=== PATIENT | female | born 1990 | race Caucasian/White ===

== ENCOUNTER 2018-02-07 08:05 | Outpatient (CLI) | payer BC ==
--- NOTE | 2018-02-07 11:05 | ULT ---
OB ULTRASOUND: HISTORY: Followup after 1st trimester. COMPARISON: None. TECHNIQUE: Sagittal and transverse imaging of a gravid uterus is performed. FINDINGS: Single intrauterine gestation with heart tones of 155 b.p.m. Presentation is transverse, mater nal left. Anterior placenta. No evidence of previa. Cervical length is 3.9 cm. Biometry: BPD 4.66 cm, 20 weeks 1 day Head circumference 17.42 cm, 20 weeks 0 days Abdominal circumference 14.72 cm, 20 weeks 0 days Femur length 3.22 cm, 20 weeks 0 days Estimated weight is 327 gm Average age by sonography is 20 weeks 0 days. Estimated delivery date is 06/27/18. Survey: The following structures appear to be normal: cerebellum, lateral ventricle, bladder, 3-vessel cord, stomach, cord insertion. Limited evaluation of the 4-chamber heart, kidneys, spine. IMPRESSION: Single intrauterine gestation as above. Average age by sonography is 20 weeks 0 days. survey as above. Followup imaging to complete survey. POS: MARIANNA
== END 2018-02-07 08:06 | disposition home or self-care (01) ==
LOC: ULT 08:05
PROVIDERS: ATTEND Family Medicine
DX: Z34.92 Encounter for supervision of normal pregnancy, unspecified, second trimester (principal); Z3A.20 20 weeks gestation of pregnancy
CPT/HCPCS: 76805

== ENCOUNTER 2018-06-24 05:42 | Inpatient (IN) | payer BC ==
--- NOTE | 2018-06-23 22:27 | HP ---
HISTORY OF PRESENT ILLNESS: This is a 27-year-old white female G3, P1-0-1-1 at 39 weeks and 2 days w ho is being admitted for elective repeat section. The patient prenatally has had no complic ations. No complaints of any contractions or rupture of membranes. She does have a history of one s pontaneous miscarriage and also a in [place] for failure to progress. She had a 9 po und 8 ounce baby at that time. She is desiring a repeat section. PAST MEDICAL HISTORY: Unremarkable. ALLERGIES: None. PAST SURGICAL HISTORY: in 02/2016 and one D&C in 07/2017. FAMILY HISTORY: Mother with history of skin cancer, sibling with melanoma. SOCIAL HISTORY: She is . She drinks wine rarely. She does have one son. She is [employer]. REVIEW OF SYSTEMS: As above. PHYSICAL EXAMINATION: VITAL SIGNS: Stable, afebrile. HEENT: Clear. HEART: Regular rate and rhythm. LUNGS: Clear. ABDOMEN: Gravid. EXTREMITIES: With no edema. LABORATORY DATA: GBS positive. HIV negative. One hour GCT 125. GC chlamydia negative. TSH normal . HIV negative, hepatitis B negative, RPR nonreactive, and rubella immune. AB positive blood type. ASSESSMENT: 1. Term . 2. Prior section. PLAN: 1. Routine L&D orders. 2. Routine anesthesia consult. 3. The patient scheduled for repeat at 7:30 in the a.m.
[2018-06-24] MEDS ORDERED: Bicitra 30 ML UDCUP PO SCH (05:58)
[2018-06-24] MEDS ORDERED: Promethazine HCl 25 MG/ML VIAL IM PRN (05:58)
[2018-06-24] MEDS ORDERED: Ondansetron HCl/PF 4 MG/2 ML Vial IVP PRN (05:58)
[2018-06-24] MEDS ORDERED: CEFAZOLIN/Water 2 GM/20 ML SYRINGE SLOW IVP SCH (05:58)
[2018-06-24] MEDS ORDERED: Acetaminophen 500 MG TAB PO PRN (05:58)
[2018-06-24] MEDS ORDERED: Butorphanol Tartrate 1 MG/ML VIAL SLOW IVP PRN (05:58)
[2018-06-24] MEDS ORDERED: Bicitra 30 ML UDCUP ONE (07:10)
[2018-06-24] MEDS ORDERED: PHENYLEPHRINE-NS 100 MCG/ML 10 ML SYRINGE ONE (07:12)
[2018-06-24] MEDS ORDERED: Ketorolac Tromethamine 30 MG/ML VIAL ONE (07:12)
[2018-06-24] MEDS ORDERED: Dexamethasone 4 mg/ml Vial ONE (07:12)
[2018-06-24] MEDS ORDERED: Ondansetron HCl/PF 4 MG/2 ML Vial ONE (07:12)
[2018-06-24] MEDS ORDERED: Bupivacaine 0.75% W/DEXTROSE 8.25% 2 ML AMP ONE (07:12)
[2018-06-24] MEDS ORDERED: Oxytocin 10 UNITS/ML VIAL ONE (07:12)
[2018-06-24] MEDS ORDERED: Morphine PF 1 MG/ML SYR ONE (07:16)
[2018-06-24] MEDS ORDERED: Erythromycin Base 0.5% Oint 1 GM TUBE ONE (09:37)
[2018-06-24] MEDS ORDERED: Phytonadione Neonatal 1 MG/0.5 ML AMP ONE (09:37)
[2018-06-24] MEDS ORDERED: Meperidine HCl/PF 25 MG/ML VIAL ONE ×2 (09:48→10:05)
[2018-06-24] MEDS ORDERED: Morphine 4 MG/ML VIAL ONE (10:59)
--- NOTE | 2018-06-24 11:23 | OP ---
PREOPERATIVE DIAGNOSES: 1. Term . 2. Prior section. POSTOPERATIVE DIAGNOSES: 1. Term . 2. Prior section. PROCEDURE: Repeat low-transverse section. SURGEON: Luis Eduardo Pierre M.D. GENERAL FREIGHT AGENT: Marion Hare MD and Mi Pierre M.D. ANESTHESIA: Spinal. ESTIMATED BLOOD LOSS: 800. Final count pending. Delivered a baby girl with Apgars 8 at 1 minute an d 9 and 5 minutes. DESCRIPTION OF PROCEDURE: This 27-year-old white female G2, P1 taken to the operating room. The abd omen was prepped and draped. A Pfannenstiel incision was made over the previous incision. Subcutane ous was dissected and the fascia was opened without incident. Peritoneum was opened by blunt dissect ion. Todd O was placed. Bladder flap was dissected inferiorly. Low-transverse uterine incision w as made. Fluid was noted to be clear. Delivered LGA baby with use of a vacuum. Baby did breathe an d cry vigorously upon delivery. Delivered the placenta manually intact. Dilated the cervix. Closed the uterus in 1 layer of #1 Monocryl. The abdomen was evacuated of all clots. Peritoneum was close d with 2-0 chromic. The fascia was closed with 0 Vicryl and the skin with goldie. Mom and baby did very well. Estimated blood loss was 800 mL.
[2018-06-24 12:21] LABS: Hemoglobin 14.8 g/dL (12.0-16.0); White Blood Cell (WBC) Count 10.5 thou/uL (4.8-10.8)
[2018-06-24 12:22] LABS: Mean Corpuscular HGB CONC 34.5 g/dL (32.0-36.0); Mean Corpuscular Hemoglobin 33.5 pg (27.0-31.0); Mean Corpuscular Volume 97.2 fL (78.0-98.0); Mean Platelet Volume 8.3 fL (7.4-10.4); Platelet Count 241 thou/uL (130-400)
[2018-06-24 12:59] LABS: HBSAg Index 0.17 S/CO (0-0.99); Hep B Surf Ag Non-Reactive S/CO (NonReactive)
[2018-06-24 13:00] LABS: Syphilis Antibody Nonreactive (Nonreactive); Syphilis Antibody Index 0.06 S/CO (<1.00 Non-Reactive)
[2018-06-24 13:34] VITALS: BMI 26.7
[2018-06-24] MEDS ORDERED: HYDROcodone/Acetaminophen 5/325 mg Tablet PO PRN (13:47)
[2018-06-24] MEDS: Lactated Ringer's 1,000 ML IV SCH ×2 (14:32→15:00)
[2018-06-25] MEDS: Lactated Ringer's 1,000 ML IV SCH ×3 (01:44→19:11)
[2018-06-25] MEDS ORDERED: Lanolin Ointment 7 GM TUBE TOP PRN (07:14)
[2018-06-25] MEDS: HYDROcodone/Acetaminophen 5/325 mg Tablet PO PRN ×2 (09:44→17:31)
[2018-06-25 11:22] LABS: Hemoglobin 13.1 g/dL (12.0-16.0); Mean Corpuscular HGB CONC 34.1 g/dL (32.0-36.0); Mean Corpuscular Hemoglobin 33.6 pg (27.0-31.0); Mean Corpuscular Volume 98.5 fL (78.0-98.0); Mean Platelet Volume 7.7 fL (7.4-10.4); Platelet Count 222 thou/uL (130-400); RBC Distribution Width 12.2 % (11.5-14.5); White Blood Cell (WBC) Count 11.7 thou/uL (4.8-10.8)
[2018-06-26] MEDS: HYDROcodone/Acetaminophen 5/325 mg Tablet PO PRN ×2 (01:30→16:44)
[2018-06-26] MEDS: Ibuprofen 800 MG TAB PO PRN ×2 (03:41→18:06)
[2018-06-26] MEDS: Lactated Ringer's 1,000 ML IV SCH ×2 (04:09→07:26)
[2018-06-26 11:57] VITALS: BP 112/70; TEMP 98.8
--- NOTE | 2018-06-27 02:12 | DIS ---
DATE OF ADMISSION: 06/24/2018 DATE OF DISCHARGE: 06/26/2018 DISCHARGE DIAGNOSES: 1. Term . 2. Repeat low transverse section. DISCHARGE MEDICATIONS: Hydrocodone 5/325 #40 and Motrin 800 one p.o. q.8 hours p.r.n. #40. BRIEF HISTORY: This is a 27-year-old white female who was admitted for elective repeat cesarea n section. No complications. HOSPITAL COURSE: The patient underwent a repeat low transverse section without complication . She did very well. She had 9 pound and 10 ounce baby girl without difficulty. Baby is breastfeed ing well. Mom and baby now ready for discharge. We will follow up in 1 day. Discharge H and H is 1 3 and 38.
== END 2018-06-26 19:10 | disposition home or self-care (01) | DRG 766 ==
LOC: L&D 05:42 → 3SE 12:54
PROVIDERS: ADMIT Family Medicine; ATTEND Family Medicine
PROC: 10D00Z1 Extraction of Products of Conception, Low, Open Approach (ICD-10-PCS; principal; 2018-06-24)
DX: O34.211 Maternal care for low transverse scar from previous cesarean delivery (principal); Z3A.39 39 weeks gestation of pregnancy; Z37.0 Single live birth; O36.63X0 Maternal care for excessive fetal growth, third trimester, not applicable or unspecified
CPT/HCPCS: 36415; 51702; 85027; 86780; 86850; 86900; 86901; 87340; A4216; J1100; J1885; J2175; J2270; J2274; J2405; J2590; J3430; J3490

== ENCOUNTER 2020-08-08 11:48 | Inpatient (IN) | payer OTHER, SELFPAY ==
[2020-08-08 12:41] LABS: Amnisure Test RUPTURE DETECTED (No Rupture)
[2020-08-08 12:42] LABS: Amnisure Internal Control QC ACCEPTABLE (ACCEPTABLE)
[2020-08-08 12:49] VITALS: BMI 28.3
[2020-08-08] MEDS ORDERED: hydrALAZINE 20 MG/ML VIAL SLOW IVP PRN ×2 (13:04→17:29)
[2020-08-08] MEDS ORDERED: Ondansetron PF 4 MG/2 ML Vial IVP PRN ×2 (13:04→17:59)
[2020-08-08] MEDS ORDERED: CEFAZOLIN 2 GM in Premix Bag 1 BAG IVPB SCH (13:15)
[2020-08-08] MEDS ORDERED: Bicitra 30 ML UDCUP PO SCH (13:15)
[2020-08-08] MEDS ORDERED: Lactated Ringer's 1,000 ML IV SCH ×2 (13:15)
[2020-08-08 13:43] LABS: Hemoglobin 15.1 g/dL (12.0-16.0); Mean Corpuscular HGB CONC 33.9 g/dL (32.0-36.0); Mean Corpuscular Hemoglobin 33.1 pg (27.0-31.0); Mean Corpuscular Volume 97.7 fL (78.0-98.0); Mean Platelet Volume 8.5 fL (7.4-10.4); Platelet Count 217 thou/uL (130-400); RBC Distribution Width 11.7 % (11.5-14.5); Red Blood Cell (RBC) Count 4.56 mill/uL (4.20-5.40); White Blood Cell (WBC) Count 11.2 thou/uL (4.8-10.8)
[2020-08-08 14:13] LABS: HBSAg Index 0.24 S/CO (0-0.99); Hep B Surf Ag Non-Reactive S/CO (NonReactive); Syphilis Antibody Nonreactive (Nonreactive); Syphilis Antibody Index 0.04 S/CO (<1.00 Non-Reactive)
[2020-08-08] MEDS ORDERED: Dexamethasone 4 mg/ml Vial ONE (16:55)
[2020-08-08] MEDS ORDERED: Ondansetron PF 4 MG/2 ML Vial ONE (16:55)
[2020-08-08] MEDS ORDERED: Metoclopramide HCl 10 MG/2 ML VIAL ONE (16:55)
[2020-08-08] MEDS ORDERED: ePHEDrine 50 MG/ML VIAL ONE (16:55)
[2020-08-08] MEDS ORDERED: Oxytocin 10 UNITS/ML VIAL ONE (16:57)
[2020-08-08] MEDS ORDERED: Adacel (T-DAP) 0.5 ML SYRINGE IM ONE (17:29)
[2020-08-08] MEDS ORDERED: diphenhydrAMINE 25 MG CAP PO PRN (17:29)
[2020-08-08] MEDS ORDERED: HYDROcodone/Acetaminophen 5/325 mg Tablet PO PRN ×3 (17:29→18:21)
[2020-08-08] MEDS ORDERED: Misoprostol 200 MCG TAB PR PRN (17:29)
[2020-08-08] MEDS ORDERED: Simethicone Chewable 80 MG TAB PO PRN (17:29)
[2020-08-08] MEDS ORDERED: Lanolin Ointment 7 GM TUBE TOP PRN (17:29)
[2020-08-08] MEDS ORDERED: Acetaminophen 325 MG TAB PO PRN (17:29)
[2020-08-08] MEDS ORDERED: Bisacodyl 10 MG SUPP PR PRN (17:29)
[2020-08-08] MEDS ORDERED: Promethazine HCl 25 MG/ML VIAL IM PRN ×2 (17:29→17:59)
[2020-08-08] MEDS ORDERED: CEFAZOLIN 1 GM VIAL ONE (17:36)
[2020-08-08] MEDS ORDERED: PHENYLEPHRINE-NS 100 MCG/ML 10 ML SYRINGE ONE (17:36)
[2020-08-08] MEDS ORDERED: diphenhydrAMINE 50 MG/ML VIAL IVP PRN (17:59)
[2020-08-08] MEDS ORDERED: Meperidine HCl/PF 25 MG/ML VIAL SLOW IVP PRN (17:59)
[2020-08-08] MEDS ORDERED: Naloxone HCl 0.4 mg/ml Vial IVP PRN ×2 (17:59)
[2020-08-08] MEDS ORDERED: Promethazine HCl 25 MG SUPP PR PRN (17:59)
[2020-08-08] MEDS ORDERED: Naloxone HCl 0.4 mg/ml Vial IV PRN (17:59)
[2020-08-08] MEDS ORDERED: HYDROmorphone 2 MG/ML VIAL SLOW IVP PRN (17:59)
[2020-08-08] MEDS ORDERED: Ondansetron HCl/PF 4 MG/2 ML Vial IVP PRN (17:59)
[2020-08-08] MEDS ORDERED: L&D-Morphine 4 MG/ML VIAL SLOW IVP PRN (17:59)
[2020-08-08] MEDS ORDERED: Ketorolac Tromethamine 30 MG/ML VIAL IVP SCH (18:00)
[2020-08-08] MEDS ORDERED: Communication Order-Pharmacy FS SCH (18:00)
[2020-08-08] MEDS ORDERED: Ketorolac Tromethamine 30 MG/ML VIAL ONE (19:58)
[2020-08-08] MEDS: Ketorolac Tromethamine 30 MG/ML VIAL IVP PRN (20:04)
[2020-08-08] MEDS ORDERED: Meperidine HCl/PF 25 MG/ML VIAL ONE (20:38)
[2020-08-08] MEDS ORDERED: Ibuprofen 800 MG TAB PO SCH (22:00)
[2020-08-09] MEDS: Docusate Calcium (SURFAK) 240 MG CAP PO SCH ×3 (00:51→21:38)
--- NOTE | 2020-08-09 01:05 | OP ---
DATE OF PROCEDURE: 08/08/2020 PREOPERATIVE DIAGNOSES: 1. 29-year-old white female, G5, P2, A2 at 38 to 39 weeks gestation. 2. Spontaneous rupture of membrane. 3. Prior section x2. POSTOPERATIVE DIAGNOSES: 1. 29-year-old white female, G5, P2, A2 at 38 to 39 weeks gestation. 2. Spontaneous rupture of membrane. 3. Prior section x2. 4. Delivered. PROCEDURE PERFORMED: Repeat low transverse section without extension. BOTTLE SORTER SURGEON: Justino Carson MD of OB Hospitalist Service. ANESTHESIA: Spinal block. ESTIMATED BLOOD LOSS: 250 mL. COMPLICATIONS: None. ANTIBIOTICS: 2 g Ancef. FINDINGS: 1. Vigorous female , weight and Apgars are pending at the time of this dictation. 2. Clear urine noted. 3. Normal uterus, bilateral fallopian tubes and ovaries. DISPOSITION: Recovery room, stable. DESCRIPTION OF PROCEDURE: The patient previously received informed consent in regard to surgery. She had spontaneous rupture of membranes with positive AmniSure noted on arrival. She was taken back to the operative suite, where she was administered a spinal block without complications. We then prepped and draped in usual sterile fashion. Gonzalez catheter and SCDs being placed. A Pfannenstiel incision was made through the previous scar site. This was carried down to the fascia. The fascia was nicked in the midline. Fascial incision was extended bilaterally with the use of curved Giraldo scissors. The rectus fascia was then dissected sharply with Giraldo scissors superiorly and inferiorly. The rectus muscle bellies were somewhat adherent and we found a plane that allowed us to dissect the rectus muscle bellies in the midline and we entered the peritoneal cavity. The peritoneal incision was extended. The patient had veins in the superficial bladder. Serosa noted and therefore, we gently placed a bladder blade instead of the Todd O retractor. A bladder flap was created in usual fashion and then a 2 cm hysterotomy incision was made in the lower uterine segment. This was extended via finger fractionation. The baby was delivered in the vertex presentation. Mouth and nares were bulb suctioned on the abdomen. The cord was doubly clamped and handed to the pediatric staff in attendance. Cord blood was obtained and placenta was manually extracted. The uterus was externalized and curetted of any remaining placental fragments with a dry laparotomy sponge. Hysterotomy incision was then closed in double-layer closure with #1 Monocryl suture. Good hemostasis was confirmed. We then irrigated the pelvis and returned the uterus back into the abdomen. Hemostasis around the hysterotomy site and pelvis was confirmed. Rectus muscle bellies were then inspected and noted to be hemostatic prior to fascial closure. The fascia was closed with 0 PDS suture x2 in a running continuous fashion. Subcutaneous tissue was irrigated and noted to be hemostatic prior to skin approximation with goldie. The surgery was terminated. No anesthesia or surgical complications occurred. Job ID: [id number]
[2020-08-09] MEDS: Ketorolac Tromethamine 30 MG/ML VIAL IVP PRN (03:14)
--- NOTE | 2020-08-09 03:25 | OP ---
DATE OF PROCEDURE: 08/08/2020 PRIMARY OB: Dr. Latesha Biggs. This note functions as a documentation that I was patent legal assistant on a repeat performed by Dr. Latesha Biggs. For complete details, please refer to her operative note. Job ID: [id number]
[2020-08-09] MEDS ORDERED: HYDROcodone/Acetaminophen 5/325 mg Tablet PO PRN ×2 (06:00)
[2020-08-09 06:18] LABS: Mean Corpuscular Hemoglobin 33.5 pg (27.0-31.0); Mean Corpuscular Volume 98.6 fL (78.0-98.0); Mean Platelet Volume 8.2 fL (7.4-10.4); Platelet Count 183 thou/uL (130-400); RBC Distribution Width 11.5 % (11.5-14.5); Red Blood Cell (RBC) Count 3.88 mill/uL (4.20-5.40); White Blood Cell (WBC) Count 18.6 thou/uL (4.8-10.8)
--- NOTE | 2020-08-09 06:54 | PDOC.PP ---
Post Progress Note Post Day #: 0-1 PO intake tolerated: yes Flatus: yes Ambulation: yes Vital Signs (12 hours) Temp Pulse Resp BP 08/09/20 03:26 98.2 F 92 16 105/64 08/08/20 22:25 98.1 F 104 H 16 118/62 08/08/20 21:15 98.1 F 106 H 16 130/66 Weight Weight 165 lb - Physical Examination Respiratory: clear to auscultation bilaterally, non-labored breathing Abdominal: lochia, no distention, appropriately TTP Result Diagrams: 08/09/20 06:02 Additional Labs: Post Labs Hep Bs Antigen Non-Reactive S/CO (NonReactive) 08/08/20 13:29 Blood Type AB POSITIVE 08/08/20 14:49 - Assessment/Plan Post op day1 from repeat c/s...Routine care. Anticipate discharge in AM.
[2020-08-09] MEDS: Prenatal Vitamin 1 TAB PO SCH (08:09)
[2020-08-09 11:08] LABS: SARS-CoV-2 MS2 Positive; SARS-CoV-2 N Gene Negative; SARS-CoV-2 S Gene Negative; SARS-CoV-2 by NAA Not Detected (NotDetected); SARS-CoV-2 orf1ab Negative
[2020-08-09] MEDS: Ibuprofen 800 MG TAB PO SCH ×2 (15:54→23:01)
[2020-08-10] MEDS: Ibuprofen 800 MG TAB PO SCH ×2 (06:51→13:40)
--- NOTE | 2020-08-10 07:54 | PDOC.PP ---
Post Progress Note Post Day #: 2 PO intake tolerated: yes Flatus: yes Ambulation: yes Vital Signs (12 hours) Temp Pulse Resp BP Pulse Ox 08/10/20 00:00 99.8 F H 85 18 123/83 98 08/09/20 20:45 98.4 F 89 20 129/70 98 Weight Weight 165 lb - Physical Examination Abdominal: + bowel sounds, no distention, appropriately TTP Extremities: negative homans (B) Result Diagrams: 08/09/20 06:02 Additional Labs: Post Labs Hep Bs Antigen Non-Reactive S/CO (NonReactive) 08/08/20 13:29 Blood Type AB POSITIVE 08/08/20 14:49 - Assessment/Plan Post op day 2-doing well. ready for discharge. Juanito out 08/12
[2020-08-10] MEDS: Docusate Calcium (SURFAK) 240 MG CAP PO SCH (08:56)
[2020-08-10] MEDS: Prenatal Vitamin 1 TAB PO SCH (08:56)
[2020-08-10 11:37] VITALS: BP 122/74; TEMP 98
== END 2020-08-10 15:15 | disposition home or self-care (01) | DRG 788 ==
LOC: L&D/OP 11:48 → L&D 13:04 → 3SW 21:10
PROVIDERS: ADMIT Obstetrics & Gynecology; ATTEND Obstetrics & Gynecology
PROC: 10D00Z1 Extraction of Products of Conception, Low, Open Approach (ICD-10-PCS; principal; 2020-08-08)
DX: O34.211 Maternal care for low transverse scar from previous cesarean delivery (principal); Z3A.38 38 weeks gestation of pregnancy; Z37.0 Single live birth; Z20.828 Contact with and (suspected) exposure to other viral communicable diseases
CPT/HCPCS: 36415; 51702; 84112; 85027; 86780; 86850; 86900; 86901; 87340; 87635; 99285; J0690; J1100; J1885; J2175; J2270; J2405; J2765; J3490; U0003